=== PATIENT | male | born 1980 | race Caucasian/White ===

== ENCOUNTER 2018-02-23 17:19 | Emergency (ER) | payer SELFPAY ==
[~2018-02-23] VITALS: Ht 167.6 cm; Wt 75.3 kg
[2018-02-23 17:26] VITALS: Ht 167.6 cm; Wt 75.3 kg
[2018-02-23 19:08] VITALS: BP 144/93
== END 2018-02-23 19:09 | disposition home or self-care (01) ==
LOC: ED 17:19
DX: S43.102A Unspecified dislocation of left acromioclavicular joint, initial encounter (principal); W18.39XA Other fall on same level, initial encounter; Y93.51 Activity, roller skating (inline) and skateboarding; Y92.89 Other specified places as the place of occurrence of the external cause; Y99.8 Other external cause status
CPT/HCPCS: Q0162